=== PATIENT | male | born 1945 | race Caucasian/White ===

== ENCOUNTER 2019-12-13 09:11 | Inpatient (IN) ==
[2019-12-13] MEDS ORDERED: ONDANSETRON 4 MG/2 ML VIAL IV ONE (10:04)
[2019-12-13] MEDS ORDERED: HYDROmorphone 2 MG/1 ML VIAL IV STA (10:04)
[2019-12-13] MEDS ORDERED: SODIUM CHLORIDE 0.9% 1,000 ML IV STA (10:50)
[2019-12-13 11:01] LABS: Basophils % 0.3 % (0.0-0.8); Eosinophils % 0.2 % (0.00-10.9); Hemoglobin 8.8 GM/DL (14.0-18.0); Immature Granulocytes % 0.9 %; Immature Granulocytes Absolute 0.05 #; Lymphocytes # 0.5 10*3/uL (1.4-4.0); Lymphocytes % 8.3 % (21.2-54.2); Mean Corpuscular HGB Conc 29.3 GM/DL (32-36); Mean Platelet Volume 9.8 FL (9.6-12.0); Monocytes % 7.3 % (1.7-12.7); Platelet Count 114 T/CUMM (130-400); Red Blood Count 3.49 MC/CUMM (3.8-5.5); Red Cell Distribution Width 15.7 % (9.3-17.3); White Blood Count 5.9 T/CUMM (4-12)
[2019-12-13 11:16] LABS: PT Patient Result 11.2 SECS (9.8-11.9)
[2019-12-13 11:25] LABS: Alanine Aminotransferase 18 U/L (16-61); Albumin 3.2 G/DL (3.4-5.0); Alkaline Phosphatase 127 U/L (45-117); Aspartate Amino Transferase 15 U/L (0-37); Blood Urea Nitrogen 23 MG/DL (7-18); Calcium 8.7 MG/DL (8.5-10.1); Estimated Glom Filtration Rate 64 ML/MIN; Glucose 151 MG/DL (74-106); Osmolality,Calculated 272.4 MOS/KG (273-304); Total Protein 7.7 G/DL (6.4-8.3)
[2019-12-13 11:30] LABS: Apearance,Urine CLEAR (Clear); Bilirubin,Urine Negative (Negative); Blood, Urine Negative (Negative); Glucose,Urine (UA) Negative (Negative); Ketones,Urine Negative (Negative); Mucus,Urine Occasional /LPF (Occasional); Nitrite,Urine Negative (Negative); Protein,Urine Negative; RBC,Urine 2 /HPF (0-4); Urine Color Yellow (Yellow); Urine Specific Gravity 1.038 (1.001-1.035); Urine Urobilinogen < 2.0 EU/DL (0.2-1.0); WBC,Urine <1 /HPF (0-6)
[2019-12-13 12:16] LABS: PT Patient Result 11.1 SECS (9.8-11.9); Partial Thromboplastin Time 26.5 SECS (23.9-33.8)
[2019-12-13] MEDS ORDERED: ACETAMINOPHEN 325 MG TABLET PO PRN (12:23)
[2019-12-13] MEDS ORDERED: ONDANSETRON 4 MG/2 ML VIAL IV PRN (12:23)
[2019-12-13] MEDS ORDERED: ALBUTEROL/IPRATROPIUM 3 ML NEB RESP TX PRN (12:23)
[2019-12-13] MEDS ORDERED: MORPHINE 4 MG/1 ML VIAL IV PRN ×2 (12:23)
[2019-12-13] MEDS ORDERED: FUROSEMIDE 40 MG TABLET PO PRN (12:30)
[2019-12-13] MEDS: ALBUTEROL/IPRATROPIUM 3 ML NEB RESP TX SCH ×2 (13:09→19:02)
[2019-12-13] MEDS ORDERED: ALBUTEROL/IPRATROPIUM 3 ML NEB RESP TX ONE (13:56)
[2019-12-13] MEDS ORDERED: FUROSEMIDE 20 MG/2 ML VIAL IV ONE (14:10)
[2019-12-13 14:18] LABS: Allen Test Positive
[2019-12-13 14:19] LABS: ABG HCO3 22.6 MMOL/L (20-26); ABG Oxygen Saturation 92.3 % (95-100); ABG PCO2 41.5 MM HG (35-48); ABG PH 7.358 (7.35-7.45); ABG PO2 71.2 MM HG (80-95); ABG TCO2 21.6 MMOL/L (23-27)
[2019-12-13 14:23] LABS: Hematocrit 30.7 VOL% (42.0-52.0); Hemoglobin 9.3 GM/DL (14.0-18.0)
[2019-12-13] MEDS: LACTATED RINGERS 1,000 ML IV SCH (14:36)
[2019-12-13] MEDS: methylPREDNISolone SOD SUC 40 MG/1 ML VIAL IV SCH ×2 (15:21→21:12)
[2019-12-13] MEDS ORDERED: AZITHROMYCIN INJ 500 MG in SODIUM CHLORIDE 0.9% 250 ML IV ONE (15:30)
[2019-12-13 18:12] LABS: Hematocrit 28.3 VOL% (42.0-52.0); Hemoglobin 8.4 GM/DL (14.0-18.0)
[2019-12-13] MEDS: POTASSIUM CHLORIDE 20 MEQ TABLET PO SCH (21:12)
[2019-12-13 22:08] LABS: Hematocrit 30.2 VOL% (42.0-52.0)
[2019-12-14] MEDS: ALBUTEROL/IPRATROPIUM 3 ML NEB RESP TX SCH ×4 (00:41→19:36)
[2019-12-14 01:46] LABS: Hematocrit 28.7 VOL% (42.0-52.0); Hemoglobin 8.6 GM/DL (14.0-18.0)
[2019-12-14] MEDS: LACTATED RINGERS 1,000 ML IV SCH ×2 (03:39→16:55)
[2019-12-14] MEDS: methylPREDNISolone SOD SUC 40 MG/1 ML VIAL IV SCH ×4 (03:39→21:19)
[2019-12-14 04:46] LABS: Hematocrit 29.7 VOL% (42.0-52.0); Hemoglobin 8.7 GM/DL (14.0-18.0); Immature Granulocytes % 0.5 %; Immature Granulocytes Absolute 0.03 #; Lymphocytes # 0.3 10*3/uL (1.4-4.0); Lymphocytes % 5.2 % (21.2-54.2); Mean Corpuscular HGB Conc 29.3 GM/DL (32-36); Mean Corpuscular Volume 85.6 FL (87-102); Mean Platelet Volume 10.3 FL (9.6-12.0); Monocytes % 3.1 % (1.7-12.7); Neutrophils % 91.2 % (38.7-73.9); Platelet Count 102 T/CUMM (130-400); Red Blood Count 3.47 MC/CUMM (3.8-5.5); Red Cell Distribution Width 15.6 % (9.3-17.3); White Blood Count 6.4 T/CUMM (4-12)
[2019-12-14 04:55] LABS: ABG Base Excess -0.8 MMOL/L (-2.5-2.5); ABG HCO3 23.5 MMOL/L (20-26); ABG Oxygen Saturation 80.1 % (95-100); ABG PCO2 38.1 MM HG (35-48); ABG PH 7.403 (7.35-7.45); ABG PO2 54.5 MM HG (80-95); ABG TCO2 22.2 MMOL/L (23-27); Allen Test Positive; Pt O2 Delivery Device Room Air
[2019-12-14 05:12] LABS: Lymphocytes 3 % (20-55); Platelet Estimate Normal; Segmented Neutrophils 92 % (50-85); Total Cells Counted 100
[2019-12-14 05:13] LABS: Anisocytosis Slight; Hypochromasia Slight; Microcytosis 1+
[2019-12-14 05:20] LABS: Calcium 8.6 MG/DL (8.5-10.1); Osmolality,Calculated 275.2 MOS/KG (273-304)
[2019-12-14 05:25] LABS: Bilirubin,Total 0.6 MG/DL (0.2-1.0); Calcium 8.6 MG/DL (8.5-10.1); Osmolality,Calculated 277.1 MOS/KG (273-304); Total Protein 7.6 G/DL (6.4-8.3)
[2019-12-14] MEDS: PANTOPRAZOLE 40 MG TABLET PO SCH (08:17)
[2019-12-14 08:41] LABS: Hematocrit 30.4 VOL% (42.0-52.0); Hemoglobin 8.9 GM/DL (14.0-18.0)
[2019-12-14] MEDS ORDERED: TRIAMCINOLONE 0.1% CREAM 15 GM TUBE TOP PRN (12:37)
[2019-12-14] MEDS ORDERED: AZITHROMYCIN INJ 250 MG in SODIUM CHLORIDE 0.9% 250 ML IV SCH (15:30)
[2019-12-14] MEDS: POTASSIUM CHLORIDE 20 MEQ TABLET PO SCH (21:19)
[2019-12-14] MEDS: DESITIN 4OZ/NYSTATIN 15 GRAM MIXTURE PASTE TOP SCH (21:19)
[2019-12-15] MEDS: ALBUTEROL/IPRATROPIUM 3 ML NEB RESP TX SCH ×2 (00:54→07:05)
[2019-12-15] MEDS: methylPREDNISolone SOD SUC 40 MG/1 ML VIAL IV SCH ×2 (02:46→10:27)
[2019-12-15 05:55] LABS: Hematocrit 27.1 VOL% (42.0-52.0); Immature Granulocytes % 0.8 %; Immature Granulocytes Absolute 0.06 #; Lymphocytes # 0.3 10*3/uL (1.4-4.0); Lymphocytes % 4.3 % (21.2-54.2); Mean Corpuscular HGB Conc 29.5 GM/DL (32-36); Mean Corpuscular Volume 84.7 FL (87-102); Mean Platelet Volume 10.9 FL (9.6-12.0); Monocytes % 3.3 % (1.7-12.7); Neutrophils % 91.6 % (38.7-73.9); Platelet Count 110 T/CUMM (130-400); Red Cell Distribution Width 15.4 % (9.3-17.3); White Blood Count 7.3 T/CUMM (4-12)
[2019-12-15 06:15] LABS: Calcium 8.2 MG/DL (8.5-10.1); Osmolality,Calculated 271.5 MOS/KG (273-304)
[2019-12-15] MEDS: LACTATED RINGERS 1,000 ML IV SCH (06:24)
[2019-12-15 06:36] LABS: Lymphocytes 3 % (20-55); Nucleated Red Blood Cells 1 (0-5); Platelet Estimate Adequate; Segmented Neutrophils 92 % (50-85); Total Cells Counted 100
[2019-12-15 06:37] LABS: Hypochromasia Slight; Microcytosis 1+
[2019-12-15] MEDS ORDERED: AZITHROMYCIN 250 MG TABLET PO SCH (09:23)
[2019-12-15] MEDS: PANTOPRAZOLE 40 MG TABLET PO SCH (10:27)
[2019-12-15] MEDS: DESITIN 4OZ/NYSTATIN 15 GRAM MIXTURE PASTE TOP SCH (10:27)
[2019-12-15 11:24] VITALS: BP 108/46
== END 2019-12-15 13:31 | disposition home health service (06) | DRG 199 ==
LOC: N.ED 09:11 → N.EDINP 12:23 → N.ICU 13:41 → N.3E 12-14 16:03
PROVIDERS: ADMIT Surgery; ATTEND Surgery